=== PATIENT | female | born 1950 | race African-American/Black ===

== ENCOUNTER 2019-07-05 14:16 | Emergency (ER) | payer MEDICAID, MEDICARE, OTHER ==
[~2019-07-05] VITALS: Ht 172.7 cm; Wt 56.7 kg
[2019-07-05] MEDS ORDERED: ATIVAN PO (14:35)
[2019-07-05] MEDS ORDERED: QUET25TA3 (14:35)
[2019-07-05] MEDS ORDERED: GABAPENTIN (14:35)
[2019-07-05] MEDS ORDERED: AMLODIPINE (14:35)
[2019-07-05] MEDS ORDERED: LORAZEPAM 2 MG/1 ML VIAL ONE (14:57)
[2019-07-05] MEDS ORDERED: LORAZEPAM 2 MG/1 ML VIAL IM ONE (15:00)
--- NOTE | 2019-07-05 15:05 | NUR ---
PT IS IN ROOM #1B. DR HARDING EVALUATED THE PT. SECURITY AT THE BEDSIDE, CONTINUE TO MONITOR THE PT.
[2019-07-05] MEDS ORDERED: GABA-532 PO ×2 (15:35)
[2019-07-05] MEDS ORDERED: AMLO1CAP PO (15:35)
--- NOTE | 2019-07-05 15:35 | NUR ---
PT UNABLE TO RECALL DOSE ON SEROQUEL. MED INFORMATION BEST PT CAN RECALL.
[2019-07-05 16:35] LABS: BASOPHILS # (AUTO) 0.1 K/uL (0.0-8.0); BASOPHILS % (AUTO) 0.8 % (0.0-2.0); EOSINOPHILS # (AUTO) 0.2 K/uL (0.0-0.7); EOSINOPHILS % (AUTO) 2.6 % (0.0-7.0); HEMATOCRIT 41.4 % (31.2-41.9); HEMOGLOBIN 13.6 g/dL (10.9-14.3); LYMPHOCYTES # (AUTO) 1.8 K/uL (20.0-40.0); LYMPHOCYTES % (AUTO) 28.5 % (20.5-51.5); MEAN CORPUSCULAR HEMOGLOBIN 29.2 uug (24.7-32.8); MEAN CORPUSCULAR HGB CONC 33 g/dL (32.3-35.6); MEAN CORPUSCULAR VOLUME 88.7 fL (75.5-95.3); MONOCYTES # (AUTO) 0.7 K/uL (2.0-10.0); MONOCYTES % (AUTO) 11.3 % (0.0-11.0); NEUTROPHILS # (AUTO) 3.6 K/uL (1.8-8.9); NEUTROPHILS % (AUTO) 56.8 % (38.5-71.5); PLATELET COUNT (AUTO) 172 K/uL (179-408); RED BLOOD CELL COUNT(AUTO) 4.66 MIL/uL (3.63-4.92); WHITE BLOOD COUNT (AUTO) 6.4 K/uL (3.8-11.8)
[2019-07-05 16:42] LABS: CARBON DIOXIDE 32 mmol/L (21-32); CHLORIDE 101 mmol/L (98-107); CREATININE 1.3 mg/dL (0.6-1.3); GLUCOSE 149 mg/dL (74-106); POTASSIUM 3.1 mmol/L (3.5-5.1); UREA NITROGEN, BLOOD 17 mg/dL (7-18)
[2019-07-05 16:47] LABS: ETHANOL < 3 MG/DL (0-0)
[2019-07-05 16:48] LABS: ACETAMINOPHEN < 2.0 ug/mL (10-30); ALANINE AMINOTRANSFERASE 26 U/L (14-59); ALKALINE PHOSPHATASE 66 U/L (50-136); ASPARTATE AMINOTRANSFERASE 23 U/L (15-37); BILIRUBIN,DIRECT 0.1 mg/dL (0.0-0.2); BILIRUBIN,TOTAL 0.3 mg/dL (0.2-1.0); TOTAL PROTEIN, SERUM 7.7 g/dL (6.4-8.2)
[2019-07-05 16:55] LABS: THYROID STIMULATING HORMONE 1.186 mIU/mL (0.358-3.740)
--- NOTE | 2019-07-05 17:09 | NUR ---
RITO, CRISIS WEAVER DOBBY LOOM WAS CALLED TO EVALUATE THE PT ACCORDING TO DR HARDING REQUEST. MESSAGE WAS LEFT ON HER ANSWER TEA.
[2019-07-05] MEDS ORDERED: HYDROCODONE/APAP 10-325 MG TABLET PO ONE (18:45)
[2019-07-05] MEDS ORDERED: HYDROCODONE/APAP 10-325 MG TABLET ONE (18:49)
--- NOTE | 2019-07-05 19:00 | NUR ---
RECEIVED HAND OFF AND SBAR FR OUTGOING DAY SHIFT RN PT AOX4, PLEASANT AND ABLE TO SPEAK COMPLETE AND CLEAR SENTENCES SITTING UPRIGHT ON GURNEY, W/ 1ON1 SITTER AT BEDSIDE WAITING FOR SUPERVISOR CONTINUOUS WELD PIPE MILL FR GRAND DAUGHTER PENDING D/C TO HOME W/ DC INSTRUCTIONS PT NAD DENIES SI/HI AT THIS TIME MONITORED ACCORDINGLY KEPT WARM DRY AND COMFORTABLE
--- NOTE | 2019-07-05 19:12 | NUR ---
CRISIS VALUATOR RITO EVALUATED THE PT. ACCORDING TO HER AND TO DR HARDING PT IS GOING TO BE DISCHARGED TO HOME. HER GRAND TRACEER IS GOING TO COME TO PICK HER UP IN 20 MINUTES. REPORT GIVEN TO MOBILITY ARCHITECT MANAGER RN.
--- NOTE | 2019-07-05 19:38 | NUR ---
Patient discharged to home in stable conditon. Written and verbal after care instructions given. Patient verbalizes understanding of instructions. Patient ambulating with steady gait. Grand daughter at bedside stating that she will be the one driving and taking patient home.
[2019-07-05 19:47] VITALS: BP 131/77
== END 2019-07-05 19:48 | disposition home or self-care (01) ==
LOC: ER 14:16
DX: R45.1 Restlessness and agitation (principal); F41.9 Anxiety disorder, unspecified; F32.9 Major depressive disorder, single episode, unspecified; Z79.899 Other long term (current) drug therapy
CPT/HCPCS: 36415; 71045; 80048; 80076; 84443; 85025; 85730; 93005; 96372; 99284; G0480 ×2; G0481; J2060; A4663